=== PATIENT | male | born 1990 | race Two or more races ===

== ENCOUNTER 2023-09-21 23:50 | Emergency (ER) | payer OTHER, SELFPAY ==
--- NOTE | 2023-09-22 00:02 | ECG_ITS ---
Test Reason : HIGH BP Blood Pressure : / mmHG Vent. Rate : 110 BPM Atrial Rate : 110 BPM P-R Int : 164 ms QRS Dur : 084 ms QT Int : 334 ms P-R-T Axes : 039 -14 061 degrees QTc Int : 452 ms Sinus tachycardia Otherwise normal ECG No previous ECGs available Referred By: Evon Fowler Electronically Signed By:GURU ROWE
[2023-09-22 00:04] VITALS: BP 155/89; PULSE 112; PULSE 120; RESP 20; RESP 22; TEMP 36.7; O2SAT 98; BMI 53.7
[2023-09-22 00:05] VITALS: BP 155/89; PULSE 120; RESP 18; O2SAT 93
--- NOTE | 2023-09-22 00:06 | MHC.EDTECH ---
Patient is changed over into hospital attire. All belongings are lock in C1 [place] arauz the patient to have shorts on Hospital security went through patent shorts Plan of care ongoing.
--- NOTE | 2023-09-22 00:10 | ED.GENADULT ---
HPI - General Adult General Chief complaint: General Medical Stated complaint: hypertensive Time Seen by Provider: 09/21/23 23:59 Source: patient Mode of arrival: ambulatory Limitations: no limitations History of Present Illness ED Provider: Deonte PAREDES HPI narrative: 33-year-old male presents with no medical complaints. Coming from your [place] where nursing states he had a blood pressure reading that was elevated. Patient states he has high blood pressure at baseline. He states he is agitated because they took away his things. He tells me he did not want to be transported refused transport for EMS however they brought him here. Not suicidal not homicidal. Denies chest pain, shortness of breath, palpitations, nausea, vomiting, fevers, chills, weakness Related Data Allergies Allergy/AdvReac Type Severity Reaction Status Date / Time haloperidol [From Haldol] Allergy Intermediate Agitated Verified 09/22/23 00:08 acetaminophen [From Tylenol] Allergy Angioedema Verified 09/22/23 00:08 Review of Systems Review of Systems: Yes all other systems are reviewed and are negative PMFSH Past Medical History Attestation statement: The following information was validated with the patient. Source: old records reviewed and nursing notes reviewed Social History Social History Substance Use Type: Former Substance User Physical Exam ED Vital Signs: Vital Signs - 24 hr 09/22/23 00:04 09/22/23 00:04 09/22/23 00:05 Temperature 98.0 F 98.0 F Pulse Rate 120 H 112 H 120 H Respiratory Rate 20 22 H 18 Blood Pressure 155/89 H 155/89 H 155/89 H Pulse Oximetry 98 98 93 Oxygen Delivery Method Room Air Room Air Room Air BMI result Body Mass Index 53.7 vss tachy likely due to anxiety and aggitation Appearance: Alert.? Oriented X3.? No acute distress.? Head: Normocephalic, atraumatic, no step-offs or deformities Eyes: Pupils equal, round and reactive to light.? ENT: Pharynx normal.? Neck: Normal inspection.? Neck supple.? CVS: Normal heart rate and rhythm.? Pulses normal.? Respiratory: No respiratory distress.? Breath sounds normal.? Abdomen: Soft and nontender.? Skin: Skin warm and dry.? Normal skin color.? Normal skin turgor.? Extremities: 2+ non pitting edema to b/l LE from the knee down..? No calf ttp. 5/5 strength to bilateral upper and lower extremities Neuro: Oriented X 3.? No motor deficit.? No sensory deficit. CN 2-12 intact Course Reevaluation(s) Reevaluation #1: I did call nursing maintenance and utilities supervisor Analia Jimenez initial nurse maintenance and utilities supervisor stated that patient was there because of slurred speech and altered mental status as well as high blood pressure reading. She was not the nurse caring for this patient. I asked to speak to the nurse and she states this is not possible. I also asked to speak to the physician who wanted the patient transferred again tells me it is not possible there is nobody on-call. I was trying to figure out why patient was transferred to the hospital as he was refusing and what symptoms were worrisome that required emergent intervention. She states that he may have taken a substance from a friend earlier however they are unclear. She then put me on the phone with another nursing maintenance and utilities supervisor who explained to me that at some point today patient was noted to be off and not acting himself after maybe he took an unknown substance and he also had a high blood pressure reading. They also told me that they would restrained patient to bring them here if he was unwilling to come. They explain the if we feel as though patient is medically cleared patient can be discharged back to the facility. I will do a basic tox screen, EKG on patient. Again he is refusing labs I have no indication to obtain labs at this time he is asymptomatic no chest pain no shortness of breath. Normal EKG. Patient is agitated given the circumstances, which I can understand. Time: 00:26 Medical Decision Making Medical Decision Making [facility] Narrative: 1211 33 yo presents from Analia Jimenez they were concerned for high blood pressure, patient states he feels fine he just had a high blood pressure reading he is also agitated. He states that they took his wallet and did not let him bring anything. Asymptomatic. No chest pain or shortness of breath. Very upset to be here. Not suicidal not homicidal. Just wants rehab. Physical exam benign History and physical exam concerning for agitation leading to hypertension or anxiety leading to hypertension. Unlikely hypertensive urgency, emergency. No chest pain or shortness of breath. Unlikely ACS, PE, acute respiratory distress, dissection. Plan patient refusing labs. EKG will be done. Patient to be discharged back to [facility] as his vitals are normal Differential Diagnosis Differential Diagnoses: The differential diagnosis associated with the presentation includes History and physical exam concerning for agitation leading to hypertension or anxiety leading to hypertension. Unlikely hypertensive urgency, emergency. No chest pain or shortness of breath. Unlikely ACS, PE, acute respiratory distress, dissection. Admission/Observation Consideration of admission/observation: Escalation of care including admission/observation considered Independent Interpretation I performed an independent interpretation of an: EKG Chronic Conditions Patient?s care impacted by: Other (substance use disorder ) Critical Care Time Critical Care Time Critical Care Time: No Discharge Plan Discharge Clinical Impression: High blood pressure Patient Disposition: Home, Self-Care Instructions: Hypertension (ED) Additional Instructions: Take your medications as prescribed. If you were prescribed antibiotics today, it is important that you take your medication to their entirety, do not skip any doses, do not finish them early. Follow-up with your primary care provider this week. Return to the emergency department with new or worsening symptoms. Such as fevers, chills, chest pain, shortness of breath, nausea, vomiting, dizziness, headache, vision changes, lethargy In case of emergency call 911 Referrals: ED Physician,Generic [Physician] - 2 days
[2023-09-22 00:15] VITALS: BP 155/89; PULSE 112; RESP 20; TEMP 36.7; O2SAT 98
--- NOTE | 2023-09-22 00:31 | PC.NURSE ---
upon patient arrival to unit patient changed into green [place] and security chekced all pockets and belongings. belongings secured in locker. Vitals obtained as well as EKG. [place] and water provided.
--- NOTE | 2023-09-22 00:33 | MHC.EDTECH ---
Patient is compliance at this time EKG is done at 0013
[2023-09-22 00:51] LABS: Amphetamine Screen Urine Not Detected (Not Detect); Barbiturates, Urine Not Detected (Not Detect); Benzodiazepines Screen Urine Not Detected (Not Detect); Buprenorphine Scr Positive (Not Detect); Cannabinoid Screen Urine Not Detected (Not Detect); Cocaine Screen Urine Not Detected (Not Detect); Fentanyl, urine Not Detected (Not Detect); Methadone Screen, Urine Not Detected (Not Detect); Opiate Screen Urine Not Detected (Not Detect); Oxycodone Screen Urine Not Detected (Not Detect); Phencyclidine Screen Urine Not Detected (Not Detect)
== END 2023-09-22 00:57 | disposition home or self-care (01) ==
PROVIDERS: Physician Assistant; Emergency Provider Internal Medicine
DX: I10 Essential (primary) hypertension (principal); R00.0 Tachycardia, unspecified; R45.1 Restlessness and agitation; F19.11 Other psychoactive substance abuse, in remission
CPT/HCPCS: 80307; 93005; 99283; 99284